=== PATIENT | female | born 1955 | race Caucasian/White ===

== ENCOUNTER 2024-03-09 09:31 | Day surgery (SDC) | payer MEDICARE, MEDICAID ==
[~2024-03-09 09:31] MED LIST: Brimonidine 0.2% Ophth Soln 5 ML Bottle EYELF SCH; Cefuroxime 10 MG/ML SYRINGE EYELF SCH; Lidocaine 1% PF 2 ML SDV INJECT SCH; Phenylephrine 2.5% Ophth Soln 2 ML Bot EYELF SCH; Pilocarpine 4% Ophth Soln 15 ML Bot EYELF SCH; Polymyxin B/Trimethoprim 10 ML Bottle EYELF SCH; Tetracaine HCl/PF 0.5% 4 ML Bottle EYEBOTH SCH; Tropicamide 1% Ophth Soln 3 ML Bottle EYELF SCH
[2024-03-09] MEDS: Polymyxin B/Trimethoprim 10 ML Bottle EYELF SCH (10:45)
[2024-03-09] MEDS: Brimonidine 0.2% Ophth Soln 5 ML Bottle EYELF SCH (10:50)
[2024-03-09] MEDS: Phenylephrine 2.5% Ophth Soln 2 ML Bot EYELF SCH (10:59)
[2024-03-09] MEDS: Tropicamide 1% Ophth Soln 3 ML Bottle EYELF SCH (11:03)
[2024-03-09] MEDS: Tetracaine HCl/PF 0.5% 4 ML Bottle EYEBOTH SCH (11:44)
[2024-03-09] MEDS: Lidocaine 1% PF 2 ML SDV INJECT SCH (12:06)
[2024-03-09] MEDS: Cefuroxime 10 MG/ML SYRINGE EYELF SCH (12:20)
[2024-03-09] MEDS: Pilocarpine 4% Ophth Soln 15 ML Bot EYELF SCH (12:21)
== END 2024-03-09 12:34 | disposition home or self-care (01) ==
LOC: JD.SDS 09:31
PROVIDERS: ATTEND Ophthalmology
DX: H25.813 Combined forms of age-related cataract, bilateral (principal); H21.42 Pupillary membranes, left eye; H21.81 Floppy iris syndrome; I10 Essential (primary) hypertension; Z79.899 Other long term (current) drug therapy; Z88.0 Allergy status to penicillin
CPT/HCPCS: A9270-GY; J0697; J3490

== ENCOUNTER 2024-04-13 11:44 | Day surgery (SDC) | payer MEDICARE, MEDICAID ==
[2024-04-13] MEDS: Polymyxin B/Trimethoprim 10 ML Bottle EYERT SCH (12:41)
[2024-04-13] MEDS: Brimonidine 0.2% Ophth Soln 5 ML Bottle EYERT SCH (12:46)
[2024-04-13] MEDS: Tropicamide 1% Ophth Soln 3 ML Bottle EYERT SCH (12:52)
[2024-04-13] MEDS: Phenylephrine 2.5% Ophth Soln 2 ML Bot EYERT SCH (12:56)
[2024-04-13] MEDS: Lidocaine 1% PF 2 ML SDV INJECT SCH (13:15)
[2024-04-13] MEDS: Tetracaine HCl/PF 0.5% 4 ML Bottle EYEBOTH SCH (13:15)
[2024-04-13] MEDS: Cefuroxime 10 MG/ML SYRINGE EYERT SCH (13:16)
[2024-04-13] MEDS: Pilocarpine 4% Ophth Soln 15 ML Bot EYERT SCH (13:16)
== END 2024-04-13 14:27 | disposition home or self-care (01) ==
LOC: JD.SDS 11:44
PROVIDERS: ATTEND Ophthalmology
DX: H25.811 Combined forms of age-related cataract, right eye (principal); H21.81 Floppy iris syndrome; H21.41 Pupillary membranes, right eye; I10 Essential (primary) hypertension; Z79.899 Other long term (current) drug therapy
CPT/HCPCS: 66982; A9270; J0697; J3490